=== PATIENT | female | born 1950 | race Caucasian/White ===

== ENCOUNTER 2016-08-24 13:26 | Emergency (ER) | payer MEDICARE, MEDICAID ==
[2016-08-24 14:42] VITALS: BP 135/71
--- NOTE | 2016-08-24 15:05 | UC ---
Throat Pain/Nasal Lito HPI - HPI Summary HPI Summary: 5 days ago felt achy, had ASTUDILLO, felt "swollen glands" on both sides of neck. Son has been sick with cough, ST, and congestion. Today pt has ST and lungs hurt. Denies cough or nasal congestion. - History of Current Complaint Chief Complaint: UCRespiratory Stated Complaint: SORE THROAT Time Seen by Provider: 08/24/16 14:26 Hx Obtained From: Patient ?: No Onset/Duration: Gradual Onset, Lasting Days Severity: Mild Cough: None Associated Signs & Symptoms: Negative: Sinus Discomfort, Nasal Discharge, Fever , Vomiting, Rash - Allergies/Home Medications Allergies/Adverse Reactions: Allergies Allergy/AdvReac Type Severity Reaction Status Date / Time No Known Allergies Allergy Verified 01/26/16 13:49 Home Medications: Home Medications Multiple Vitamins W/ Minerals [Multivitamin Women] 1 tab PO 08/24/16 [History] PMH/Surg Hx/FS Hx/Imm Hx Previously Healthy: Yes Endocrine History Of: Denies: Diabetes, Thyroid Disease Cardiovascular History Of: Denies: Cardiac Disorders, Hypertension Respiratory History Of: Denies: COPD, Asthma GI/ History Of: Denies: Ulcer - Surgical History Surgical History: Yes Surgery Procedure, Year, and Place: oopherectomy - Family History Known Family History: Negative: Blood Disorder - Social History Lives: With Family Alcohol Use: None Substance Use Type: None Smoking Status (MU): Unknown if Ever Smoked Review of Systems Constitutional: Chills, Fatigue Skin: Negative Eyes: Negative ENT: Sore Throat Respiratory: Negative Cardiovascular: Negative Gastrointestinal: Negative Genitourinary: Negative Motor: Negative Neurovascular: Negative Musculoskeletal: Negative Neurological: Negative Psychological: Negative All Other Systems Reviewed And Are Negative: Yes Physical Exam Triage Information Reviewed: Yes Appearance: Well-Appearing, No Pain Distress, Well-Nourished Vital Signs: Initial Vital Signs Temp 98.8 F 08/24/16 14:39 Pulse 72 08/24/16 14:39 Resp 18 08/24/16 14:39 BP 135/71 08/24/16 14:39 Pulse Ox 98 08/24/16 14:39 Vital Signs Reviewed: Yes Eye Exam: Normal Eyes: Positive: Conjunctiva Clear ENT: Positive: Hearing grossly normal, Pharyngeal erythema - mild, TMs normal. Negative: Nasal congestion, Nasal drainage, Tonsillar swelling, Tonsillar exudate Dental Exam: Normal Neck exam: Normal Neck: Positive: Supple, Nontender, No Lymphadenopathy Respiratory Exam: Normal Respiratory: Positive: Chest non-tender, Lungs clear, Normal breath sounds, No respiratory distress, No accessory muscle use Cardiovascular Exam: Normal Cardiovascular: Positive: RRR, No Murmur Musculoskeletal Exam: Normal Neurological Exam: Normal Psychological Exam: Normal Skin Exam: Normal Throat Pain/Nasal Course/Dx - Differential Dx/Diagnosis Provider Diagnoses: URI, likely viral Discharge - Discharge Plan Condition: Stable Disposition: HOME Patient Education Materials: Cold Symptoms (ED) Additional Instructions: Your rapid strep was negative; your symptoms suggest a viral illness. Because we have no cure for most respiratory viruses, time, rest, and fluids are the mainstay of treatment. Because your symptoms have been mild thus far, you may not get much sicker.
== END 2016-08-24 15:28 | disposition home or self-care (01) ==
LOC: UCEAST 13:26
DX: J06.9 Acute upper respiratory infection, unspecified (principal)
CPT/HCPCS: 87651; 99211; G0463

== ENCOUNTER 2016-12-30 13:48 | Emergency (ER) | payer MEDICAID, MEDICARE ==
[2016-12-30 13:58] VITALS: BP 125/82
--- NOTE | 2016-12-30 15:03 | UC ---
Rui Arellano Alok, scribed for Juan Ramon Leo MD on 12/30/16 at 1457 . Skin Complaint HPI - HPI Summary HPI Summary: LumaF presents to the [facility] with a rash of the left inside elbow accompanied by swelling, erythema, and pruritus. Pt states she first noticed the rash one week ago as a smaller area which progressed into a larger area over the week. Pt notes nausea and generalized myalgia. Pt also noted similar valenzuela on her left knuckle which had subsided since. Pt denies known skin exposure. Pt denies sore throat, ear pain, fever or chills. - History of Current Complaint Chief Complaint: UCGeneralIllness Stated Complaint: POSSIBLE BUG BITE/VOMITING/FEELS FAINT Hx Obtained From: Patient Onset/Duration: Gradual Onset, Lasting Days, Still Present Timing: Constant Onset Severity: Moderate Current Severity: Moderate Pain Intensity: 0 Pain Scale Used: 0-10 Numeric Location: Discrete - left arm Character: Swelling, Pruritus, Redness Aggravating: Nothing Associated Signs & Symptoms: Positive: Nausea, Rash. Negative: Fever, Chills - Allergy/Home Medications Allergies/Adverse Reactions: Allergies Allergy/AdvReac Type Severity Reaction Status Date / Time No Known Allergies Allergy Verified 12/30/16 13:59 Review of Systems Constitutional: Negative Skin: Rash Gastrointestinal: Other - nausea Musculoskeletal: Myalgia All Other Systems Reviewed And Are Negative: Yes PMH/Surg Hx/FS Hx/Imm Hx - Surgical History Surgical History: Yes Surgery Procedure, Year, and Place: oopherectomy - Family History Known Family History: Negative: Blood Disorder - Social History Occupation: Retired Alcohol Use: Occasionally Substance Use Type: None Smoking Status (MU): Unknown if Ever Smoked Physical Exam Triage Information Reviewed: Yes Appearance: No Pain Distress, Ill-Appearing - mild Vital Signs: Initial Vital Signs Temp 96.7 F 12/30/16 13:51 Pulse 72 12/30/16 13:51 Resp 18 12/30/16 13:51 BP 125/82 12/30/16 13:51 Pulse Ox 98 12/30/16 13:51 Vital Signs Reviewed: Yes Eyes: Positive: Other: - EOMI, GINA ENT Exam: Normal Neck: Positive: Supple, Nontender Respiratory: Positive: Lungs clear, Normal breath sounds Cardiovascular: Positive: RRR Abdomen Description: Positive: Nontender, Soft Bowel Sounds: Positive: Present Musculoskeletal Exam: Normal Musculoskeletal: Positive: Strength Intact, ROM Intact Neurological Exam: Normal Neurological: Positive: Other: - Alert & Oriented. Sensory/Motor Intact Psychological: Positive: Other: - Affect/mood appropriate Skin: Positive: Other - Left antecubital bullseye erythymatous rash Course/Dx - Course Course Of Treatment: Pt medications reviewed this visit. WILL TREAT FOR LYME WITH DOXY 100MG PO BID X 21 DAYS FOR BULLS EYE APPEARING LEFT ANTICUBITAL CELLULITIC RASH. PATIENT WILL RETURN OR GO TO ED IF WORSE. - Diagnoses Provider Diagnoses: LEFT ARM CELLULITIS AFTER INSECT BITE. Discharge - Discharge Plan Condition: Stable Disposition: HOME Prescriptions: DOXYcycline CAP(*) [DOXYcycline 100MG CAP(*)] 100 mg PO BID #42 cap Patient Education Materials: Cellulitis (ED), Insect Bite or Sting (ED) Referrals: [facility] [Outside] Non Staff,Doctor [Primary Care Provider] - Additional Instructions: FOLLOW UP WITH YOUR DOCTOR. GO TO THE EMERGENCY DEPARTMENT FOR ANY WORSENING OF YOUR CONDITION OR QUESTIONS OR CONCERNS. The documentation as recorded by the Rui sexton Alok accurately reflects the service I personally performed and the decisions made by me, Juan Ramon Leo MD.
[2016-12-30 18:21] LABS: Hematocrit 42 % (35-47); Hemoglobin 13.6 g/dl (12.0-16.0); Mean Corpuscular HGB Conc 32 g/dl (31-36); Mean Corpuscular Hemoglobin 31 pg (27-31); Mean Corpuscular Volume 97 fL (80-97); Mean Platelet Volume 11 um3 (7.4-10.4); Red Blood Count 4.33 10^6/ul (4.0-5.4); Red Cell Distribution Width 14 % (10.5-15)
[2016-12-30 18:34] LABS: Albumin 4.3 g/dL (3.2-5.2); BUN/Creatinine Ratio 24.5 (8-20); C Reactive Protein 2.32 mg/L (< 5.00); Calcium 9.5 mg/dL (8.6-10.3); EGFR Non-African American 115.1 (>60); Globulin 2.6 g/dL (2-4); Potassium 4.6 mmol/L (3.5-5.0); Total Bilirubin 0.6 mg/dL (0.2-1.0); Total Protein 6.9 g/dL (6.4-8.9)
== END 2016-12-30 15:20 | disposition home or self-care (01) ==
LOC: UCEAST 13:48
DX: S50.362A Insect bite (nonvenomous) of left elbow, initial encounter (principal); L03.114 Cellulitis of left upper limb; W57.XXXA Bitten or stung by nonvenomous insect and other nonvenomous arthropods, initial encounter; Y93.9 Activity, unspecified; Y92.9 Unspecified place or not applicable; R11.0 Nausea
CPT/HCPCS: 36415; 80053; 85025; 86140; 86618; 99212; G0463

== ENCOUNTER 2017-12-08 16:21 | Emergency (ER) | payer MEDICARE ==
[2017-12-08 16:47] VITALS: BP 127/73
--- NOTE | 2017-12-08 17:24 | ED ---
Skin Complaint - HPI Summary HPI Summary: 67 yWF c/o two purpuric spots on her left and right medical dorsum of hand after an insect bite 2 days ago. Denies f/c/pruritis or SOB, no recent illnesses or any other lesions - History of Current Complaint Chief Complaint: UCSkin Time Seen by Provider: 12/08/17 16:51 Stated Complaint: soft tissue complaint Hx Obtained From: Patient Onset/Duration: Started Days Ago Skin Exposure Onset/Duration: Weeks Ago Onset Severity: Mild Current Severity: None Pain Intensity: 2 - Allergy/Home Medications Allergies/Adverse Reactions: Allergies Allergy/AdvReac Type Severity Reaction Status Date / Time No Known Allergies Allergy Verified 12/08/17 16:47 Home Medications: Home Medications NK [No Home Medications Reported] 12/08/17 [History Confirmed 12/08/17] PMH/Surg Hx/FS Hx/Imm Hx Previously Healthy: Yes Endocrine/Hematology History: Denies: Hx Diabetes, Hx Thyroid Disease Cardiovascular History: Denies: Hx Hypertension Respiratory History: Denies: Hx Asthma, Hx Chronic Obstructive Pulmonary Disease (COPD) GI History: Denies: Hx Ulcer - Surgical History Surgery Procedure, Year, and Place: Oopherectomy Infectious Disease History: No Infectious Disease History: Denies: Hx Clostridium Difficile, Hx Hepatitis, Hx Human Immunodeficiency Virus (HIV), Hx of Known/Suspected MRSA, Hx Shingles, Hx Tuberculosis, Hx Known/ Suspected VRE, Hx Known/Suspected VRSA, History Other Infectious Disease, Traveled Outside the in Last 30 Days - Family History Known Family History: Negative: Blood Disorder - Social History Alcohol Use: Occasionally Substance Use Type: Reports: None Smoking Status (MU): Never Smoked Tobacco Review of Systems Constitutional: Negative Eyes: Negative ENT: Negative Cardiovascular: Negative Respiratory: Negative Gastrointestinal: Negative Genitourinary: Negative Musculoskeletal: Negative Skin: Other - see HPI Neurological: Negative Psychological: Normal All Other Systems Reviewed And Are Negative: Yes Physical Exam Triage Information Reviewed: Yes Vital Signs On Initial Exam: Initial Vitals Temp Pulse Resp BP Pulse Ox 36.3 C 86 18 127/73 99 12/08/17 16:44 12/08/17 16:44 12/08/17 16:44 12/08/17 16:44 12/08/17 16:44 Vital Signs Reviewed: Yes Appearance: Positive: No Pain Distress Skin: Positive: Warm, Other - left purpuric skin lesion on left dorsum of hand- 2x2cm, right purpuric skin lesion on right sorsum of hand 0.5x0.5cm Eyes: Positive: Normal ENT: Positive: Normal ENT inspection Neck: Positive: Supple Cardiovascular: Positive: Normal, S1, S2 Musculoskeletal: Positive: Normal Neurological: Positive: Normal Psychiatric: Positive: Other - preoccupied, presverating thought and affect AVPU Assessment: Alert Diagnostics - Vital Signs Vital Signs Temp Pulse Resp BP Pulse Ox 12/08/17 16:44 36.3 C 86 18 127/73 99 - Laboratory Lab Statement: Any lab studies that have been ordered have been reviewed, and results considered in the medical decision making process. Course/Dx - Course Course Of Treatment: purpuric skin lesions secondary to insect bite, no other associated sx, labs done in her PCP's office a few months ago WNL per pt - Diagnoses Provider Diagnoses: Purpura, allergic, Purpura senilis Discharge - Sign-Out/Discharge Documenting (check all that apply): Discharge/Admit/Transfer - Discharge Plan Condition: Stable Disposition: HOME Patient Education Materials: Purpura (ED) Referrals: Igor Armstrong MD [Primary Care Provider] - Additional Instructions: Follow up with your PCP within one week or go to ED if fatigue with Shortness of breath occurs - Billing Disposition and Condition Condition: STABLE Disposition: HOME
== END 2017-12-08 17:30 | disposition home or self-care (01) ==
LOC: UCEAST 16:21
DX: D69.0 Allergic purpura (principal); D69.2 Other nonthrombocytopenic purpura
CPT/HCPCS: 99211; G0463

== ENCOUNTER 2017-12-23 11:27 | Emergency (ER) | payer MEDICARE ==
[2017-12-23 12:31] VITALS: BP 117/79
--- NOTE | 2017-12-23 12:45 | UC ---
Skin Complaint HPI - HPI Summary HPI Summary: 67 yo female presents with ?tick bite to left hand. She tells me that she noticed it this morning and noticed it looked like a ring - is worried it was a tick. Did not see a tick attached to her recently and has not been bitten in the last month to her knowledge. Denies fever, chills, pain, or drainage. - History of Current Complaint Chief Complaint: UCGeneralIllness Time Seen by Provider: 12/23/17 12:44 Stated Complaint: LEFT HAND BUG BITE Hx Obtained From: Patient Onset/Duration: Sudden Onset Current Severity: None Pain Intensity: 0 - Allergy/Home Medications Allergies/Adverse Reactions: Allergies Allergy/AdvReac Type Severity Reaction Status Date / Time No Known Allergies Allergy Verified 12/23/17 12:31 Review of Systems Constitutional: Negative Skin: Other - Bug bite left hand Respiratory: Negative Cardiovascular: Negative Neurovascular: Negative Musculoskeletal: Negative Neurological: Negative Psychological: Negative All Other Systems Reviewed And Are Negative: Yes PMH/Surg Hx/FS Hx/Imm Hx - Additional Past Medical History Additional PMH: None - Surgical History Surgical History: Yes Surgery Procedure, Year, and Place: Oopherectomy - Family History Known Family History: Positive: None Negative: Blood Disorder - Social History Occupation: Retired Lives: With Family Alcohol Use: Occasionally Substance Use Type: None Smoking Status (MU): Never Smoked Tobacco - Immunization History Most Recent Tetanus Shot: UNK Physical Exam - Summary Physical Exam Summary: GENERAL: NAD. WDWN. No pain distress. SKIN: Left dorsal hand at the webspace of thumb and index there is a 2mm diameter of mild erythema and edema. No streaking, bleeding, or drainage. NECK: Supple. Nontender. No lymphadenopathy. CHEST: No accessory muscle use. Breathing comfortably and in no distress. CV: RRR. Without m/r/g. NEURO: Alert. CN II-XII grossly intact. PSYCH: Age appropriate behavior. Triage Information Reviewed: Yes Vital Signs: Initial Vital Signs Temp 98.6 F 12/23/17 12:27 Pulse 65 12/23/17 12:27 Resp 18 12/23/17 12:27 BP 117/79 12/23/17 12:27 Pulse Ox 100 12/23/17 12:27 Course/Dx - Course Course Of Treatment: Bug bite left hand. Does not appear to be a tick bite and pt did not see a tick. Reassurance and ice the area. F/u prn - Diagnoses Provider Diagnoses: Bug bite left hand Discharge - Sign-Out/Discharge Documenting (check all that apply): Discharge/Admit/Transfer - Discharge Plan Condition: Stable Disposition: HOME Patient Education Materials: Insect Bite or Sting (ED) Referrals: Igor Armstrong MD [Primary Care Provider] - Additional Instructions: If you develop a fever, shortness of breath, chest pain, new or worsening symptoms - please call your PCP or go to the ED. - Billing Disposition and Condition Condition: STABLE Disposition: Home
== END 2017-12-23 13:03 | disposition home or self-care (01) ==
LOC: UCEAST 11:27
DX: S60.562A Insect bite (nonvenomous) of left hand, initial encounter (principal); W57.XXXA Bitten or stung by nonvenomous insect and other nonvenomous arthropods, initial encounter; Y93.9 Activity, unspecified; Y92.9 Unspecified place or not applicable
CPT/HCPCS: 99211; G0463